=== PATIENT | male | born 1940 | race Caucasian/White ===

== ENCOUNTER 2018-12-04 17:11 | Emergency (ER) | payer MEDICAID ==
[2018-12-04 17:38] VITALS: BP 173/67; PULSE 63; RESP 18; TEMP 97.9; O2SAT 100
--- NOTE | 2018-12-04 19:26 | C.PDOC ---
History Of Present Illness 78 y/o male, with no medical problems, comes in for diffuse itching x5 weeks. Patient states it started when he was in [place]. Patient came back to the [place] a [place] and a half ago and itching has persisted. Patient denied any rash and has taken benadryl with no relief. Also denies abdominal pain, nausea, vomiting, diarrhea, fever, or sick contacts. Time Seen by Provider: 12/04/18 19:05 Chief Complaint (Nursing): Abnormal Skin Integrity History Per: Patient History/Exam Limitations: no limitations Onset/Duration Of Symptoms: Days Current Symptoms Are (Timing): Still Present Past Medical History Reviewed: Historical Data, Nursing Documentation, Vital Signs Vital Signs: Last Vital Signs Temp 97.9 F 12/04/18 17:34 Pulse 63 12/04/18 17:34 Resp 18 12/04/18 17:34 BP 173/67 H 12/04/18 17:34 Pulse Ox 100 12/04/18 17:34 Family History: States: No Known Family Hx - Social History Hx Alcohol Use: Yes Hx Substance Use: No - Immunization History Hx Tetanus Toxoid Vaccination: No Hx Influenza Vaccination: Yes Hx Pneumococcal Vaccination: No Review Of Systems Constitutional: Positive for: Other (diffuse itching). Negative for: Fever, Chills Cardiovascular: Negative for: Chest Pain Respiratory: Negative for: Shortness of Breath Gastrointestinal: Negative for: Nausea, Vomiting, Abdominal Pain, Diarrhea Skin: Negative for: Rash Physical Exam - Physical Exam Appears: Non-toxic, No Acute Distress Skin: Warm, Dry, Other (Multiple old, well-healed surgical scars; some excoriations to upper back and arms but no rash noted) Head: Atraumatic, Normacephalic Eye(s): bilateral: Normal Inspection Ear(s): Bilateral: Normal Oral Mucosa: Moist Throat: Normal, No Erythema, No Exudate Chest: Symmetrical Cardiovascular: Rhythm Regular, No Murmur Respiratory: Normal Breath Sounds, No Rales, No Rhonchi, No Wheezing Gastrointestinal/Abdominal: Soft, No Tenderness Extremity: Bilateral: Normal ROM Neurological/Psych: Oriented x3, Normal Speech ED Course And Treatment O2 Sat by Pulse Oximetry: 100 (RA) Pulse Ox Interpretation: Normal Medical Decision Making Medical Decision Making: Unclear what the cause is. Will try some permethrin. Patient will be discharged home and was advised to follow up with med clinic. Disposition Counseled Patient/Family Regarding: Diagnosis, Need For Followup, Rx Given - Disposition Referrals: [facility] [Outside] Disposition: HOME/ ROUTINE Disposition Time: 19:22 Condition: GOOD Additional Instructions: Please use permethrin cream as prescribed. Take Claritin 10mg once a day for itching. Follow up in medical clinic. Return to ER for any worse symptoms. Prescriptions: Permethrin 5% [Permethrin 5% Cream] 60 gm EXT ONCE #1 tube Instructions: Itchy Skin Forms: [facility] (Bahamian), General Discharge Instructions - Clinical Impression Clinical Impression: Generalized pruritus - PA / JOWL TRIMMER / Resident Statement MD/DO has reviewed & agrees with the documentation as recorded. - Scribe Statement The provider has reviewed the documentation as recorded by the Scribzack Gallagher All medical record entries made by the Brittanyibzack were at my direction and personally dictated by me. I have reviewed the chart and agree that the record accurately reflects my personal performance of the history, physical exam, medical decision making, and the department course for this patient. I have also personally directed, reviewed, and agree with the discharge instructions and disposition.
== END 2018-12-04 19:38 | disposition home or self-care (01) ==
LOC: C.ER 17:11
DX: L29.9 Pruritus, unspecified (principal)